=== PATIENT | male | born 1975 | race Caucasian/White ===

== ENCOUNTER 2022-11-01 07:14 | Emergency (ER) | payer BC, OTHER ==
[~2022-11-01] VITALS: Ht 162.6 cm; Wt 86.0 kg
[2022-11-01 07:29] VITALS: BP 124/80; PULSE 80; RESP 18; TEMP 98.3; O2SAT 98
[2022-11-01] MEDS ORDERED: IBUPROFEN 400MG TABLET PO ONE (09:45)
[2022-11-01] MEDS ORDERED: ACETAMINOPHEN 325MG TABLET PO ONE (09:45)
[2022-11-01] MEDS ORDERED: IBUP-2028 MT (11:55)
== END 2022-11-01 12:18 | disposition home or self-care (01) ==
LOC: ER 07:14
DX: M79.604 Pain in right leg (principal)
CPT/HCPCS: 73590; 73610; 99284